=== PATIENT | female | born 2000 | race Caucasian/White ===

== ENCOUNTER 2025-08-14 07:46 | Inpatient (IN) ==
[2025-08-14] MEDS ORDERED: ACETAMINOPHEN 500 MG TAB PO PRN (08:04)
[2025-08-14] MEDS ORDERED: LIDOCAINE 1% LOCAL 20 ML VIAL INFIL PRN (08:04)
[2025-08-14] MEDS ORDERED: CALCIUM CARBONATE 500 MG CHEWABLE TAB PO PRN ×2 (08:04→08:07)
[2025-08-14] MEDS ORDERED: ACETAMINOPHEN 325 MG TAB PO PRN (08:07)
[2025-08-14] MEDS ORDERED: ONDANSETRON INJ 2 MG/ML 2 ML VIAL IV PRN (08:07)
[2025-08-14] MEDS ORDERED: BUTORPHANOL TARTRATE 1 MG/ML VIAL IV PRN (08:07)
[2025-08-14 08:46] LABS: Hematocrit (blood only) 34.0 % (37.0-47.0); Hemoglobin 11.8 g/dl (12.0-16.0); Mean Corpuscular Hemoglobin 31.6 pg (25.0-34.0); Mean Corpuscular Volume 91.2 fL (80.0-100.0); Platelet Count 227 K/uL (130-400); RDW Standard Deviation 42.0 fL (36.4-46.3); Red Blood Count 3.73 M/uL (4.20-5.40); White Blood Count 11.27 K/ul (4.8-10.8)
[2025-08-14 09:06] LABS: Alanine Aminotransferase 23.0 U/L (7-52); Albumin Globulin Ratio 1.0 (0.9-2); Albumin Level 3.0 gm/dl (3.4-5.0); Alkaline Phosphatase 122.0 U/L (34-104); Anion Gap 7.0 (3-11); Bilirubin,Total 0.3 mg/dl (0.2-1.0); Blood Urea Nitrogen 12.0 mg/dl (6-23); Calcium 8.8 mg/dl (8.6-10.3); Carbon Dioxide 22.0 mmol/L (21-32); Chloride 108.0 mmol/L (98-107); Creatinine Clr Calc Pharmacy 195.2 ml/min; Globulin 3.1 gm/dl (2.5-4.0); Glucose 100.0 mg/dl (70-99(Fasting)); Potassium 3.9 mmol/L (3.5-5.1); Sodium 137.0 mmol/L (136-145); Total Protein 6.1 gm/dl (6.0-8.3)
[2025-08-14] MEDS: DINOPROSTONE 10 MG INSERT PV ONE (09:29)
--- NOTE | 2025-08-14 09:45 | History & Physical Report ---
Date of Service August 14, 2025 Assessment & Plan (1) Marginal insertion of umbilical cord affecting management of mother: (2) Obesity affecting in third trimester, antepartum: (3) with 39 completed weeks gestation: (4) Encounter for induction of labor: Plan: 25-year-old G1, P0 at 39 weeks and 1 day gestation presenting today for scheduled duction of labor at term for class III obesity, Vital signs stable afebrile, GBS negative, heart rate reassuring, Cervix is favorable, Patel score still less than 6, Cervidil is placed in posterior fornix for induction, discussed what to expect, All questions were answered, Continue to monitor closely. Admission and Anticipated Discharge Date Admission Date: August 14, 2025 History of Present Illness Primary Care Provider: NO PCP patient is a eighteen 25-year-old G1, P0 at 39 weeks and 1 day gestation who was scheduled for induction of labor for class III obesity. She has no complaints. She denies contractions, leakage of fluid, vaginal bleeding, she denies headaches, change in her vision, nausea vomiting or abdominal pain. She reports good movements. Her has been complicated by, 1. Class III obesity, Growth scans have been within normal limits 2. marginal cord insertion patient denies medical problems, GBS negative. Allergies Allergy/AdvReac Type Severity Reaction Status Date / Time No Known Allergies Allergy Unverified 08/14/25 08:01 Home Medications Medication Instructions Recorded Confirmed Type prenat.vits,leah,[id number]-[id number]-[id number] tab 07/20/25 History Patient History Medical History No known health problems Surgical History No history of previous surgery Social History Smoking Status: Current some day smoker Tobacco Type: E-cigarettes / Vaping Second Hand Exposure: No; Do You Dip or Chew Tobacco: No; Tobacco Cessation Education Requested by Patient: No Hx Alcohol Use: No Hx Substance Use: No Preferred Language: Andorran Communication Ability: Effective Warp Tying Machine Knotter Required: No Beliefs That Will Affect Care: None marital status: Single Current Living Situation: Significant Other current occupational status: employed current occupation: [employer] Other Information That Helps Us Care for You: No Feels Safe at Home: Yes Safety Concerns: Feels Safe At This Time Assistive Devices: None QUALITY ASSOCIATE History No history of STDs, no history of chlamydia, gonorrhea, herpes Review of Systems as per Subjective / HPI Physical Exam Constitutional: WD/WN, vitals as above well developed, well nourished, + obese and comfortable Genitourinary: normal external appearance OB Exam Abdomen: + vertex Manual OB Exam: + cervical dilation 1 cm (1-2), + cervical effacement 40% and + station high OB Exam Monitor Tracing: + external uterine monitor used and + category I Results & Data Vital Signs (Past 12 Hours) Vital Signs Temp Pulse Resp BP 08/14/25 08:01 36.8 C 94 H 20 135/72 Laboratory Results Lab Results 08/14/25 Range/Units 08:28 WBC 11.27 H (4.8-10.8) K/ul RBC 3.73 L (4.20-5.40) M/uL Hgb 11.8 L (12.0-16.0) g/dl Hct 34.0 L (37.0-47.0) % MCV 91.2 (80.0-100.0) fL MCH 31.6 (25.0-34.0) pg MCHC 34.7 (32.0-36.0) g/dL RDW Std Deviation 42.0 (36.4-46.3) fL RDW Coeff of Melany 12.8 (11.5-14.5) % Plt Count 227 (130-400) K/uL MPV 10.0 (9.4-12.4) fL Sodium 137 (136-145) mmol/L Potassium 3.9 (3.5-5.1) mmol/L Chloride 108 H (98-107) mmol/L Carbon Dioxide 22 (21-32) mmol/L Anion Gap 7 (3-11) BUN 12 (6-23) mg/dl Creatinine 0.67 (0.6-1.2) mg/dl Est Cr Clr Drug Dosing 195.2 ml/min eGFR 125.87 BUN/Creatinine Ratio 17.9 (10-20) Glucose 100 H (70-99(Fasting)) mg/dl Calcium 8.8 (8.6-10.3) mg/dl Total Bilirubin 0.3 (0.2-1.0) mg/dl AST 17 (13-39) U/L ALT 23 (7-52) U/L Alkaline Phosphatase 122 H (34-104) U/L Total Protein 6.1 (6.0-8.3) gm/dl Albumin 3.0 L (3.4-5.0) gm/dl Globulin 3.1 (2.5-4.0) gm/dl Albumin/Globulin Ratio 1.0 (0.9-2) Treponema pallidum Ab Negative (Negative) Blood Type O Positive Antibody Screen NEGATIVE (2) Obesity affecting in third trimester, antepartum Obesity type affecting : other obesity Qualified Code(s): O99.213 - Obesity complicating , third trimester; E66.89 - Other obesity not elsewhere classified
--- NOTE | 2025-08-14 15:10 | Obstetrical Progress Note ---
Date of Service August 14, 2025 Assessment & Plan Admission and Anticipated Discharge Date Admission Date: August 14, 2025 Subjective Went into her room to see her, she is sleeping/ snoring comfortable Her nurse stated she has not been feeling pain or contractions FHR has been categ I Continue to monitor closely Results & Data Vital Signs (Past 12 Hours) Vital Signs Temp Pulse Resp BP 08/14/25 11:33 37.1 C 88 18 135/82 08/14/25 08:01 36.8 C 94 H 20 135/72
--- NOTE | 2025-08-14 21:34 | Obstetrical Progress Note ---
Date of Service August 14, 2025 Assessment & Plan Admission and Anticipated Discharge Date Admission Date: August 14, 2025 Subjective Patient is reevaluated. She has been resting on her side. She feels crampy all the time pain level is 5 out of 10 does not need pain medication. She denies leakage of fluid or vaginal bleeding. She reports good movements. heart rate had been category 1, [place] does not register contractions now but she was having contractions every 2 to 3 minutes earlier, Cervidil is removed, cervix is 3 cm dilated, 70% effaced, head is -3 station, bag is tighter, Discussed the findings and continue induction with oxytocin per protocol as needed to augment contractions Continue to monitor closely Results & Data Vital Signs (Past 12 Hours) Vital Signs Temp Pulse Resp BP 08/14/25 19:00 36.8 C 18 08/14/25 19:00 18 08/14/25 19:00 36.8 C 18 08/14/25 18:58 88 134/84 08/14/25 15:35 80 154/83 H 08/14/25 15:34 36.8 C 96 H 20 177/96 H 08/14/25 11:33 37.1 C 88 18 135/82
[2025-08-15] MEDS: LACTATED RINGER'S 1,000 ML IV PRN (00:28)
[2025-08-15] MEDS ORDERED: NALOXONE HCL 0.4 MG/1 ML VIAL/CARP IV PRN (00:57)
[2025-08-15] MEDS ORDERED: SODIUM CHLORIDE 0.9% PF INJ 10 ML VIAL EPI PRN (00:57)
[2025-08-15] MEDS ORDERED: LIDOCAINE 2% MPF LOCAL 5 ML VIAL EPI PRN (00:57)
[2025-08-15] MEDS ORDERED: ONDANSETRON INJ 2 MG/ML 2 ML VIAL IV PRN (00:57)
[2025-08-15] MEDS ORDERED: BUPIVACAINE 0.25% PF 30 ML VIAL EPI PRN (00:57)
[2025-08-15] MEDS ORDERED: diphenhydrAMINE 50 MG/ML VIAL IV PRN (00:57)
[2025-08-15] MEDS ORDERED: PROMETHAZINE 6.25 MG/50.25 ML BAG IV PRN (00:57)
[2025-08-15] MEDS ORDERED: ROPIVACAINE 0.5% PF 5 MG/ML 20 ML VIAL EPI PRN (00:57)
[2025-08-15] MEDS ORDERED: NALBUPHINE HCL INJ 10 MG/ML AMP IV PRN (00:57)
[2025-08-15] MEDS ORDERED: NALOXONE HCL 1 MG in SODIUM CHLORIDE 0.9% 1,000 ML IV PRN (00:57)
--- NOTE | 2025-08-15 00:57 | Anesthesiology Consultation ---
Date of Service August 15, 2025 Assessment & Plan ASA ASA2 Proposed Anesthesia Anesthesia Type: Labor Epidural Risk / Benefits Reviewed With: PT / POA / Parent / Guardian, Accepts Plan and Informed Consent Obtained History Height/Weight Height: 5 ft 9 in Weight: 137.438 kg Allergies Allergy/AdvReac Type Severity Reaction Status Date / Time No Known Allergies Allergy Unverified 08/14/25 08:01 Medications Home Medications Medication Instructions Recorded Confirmed Last Taken prenat.vits,leah,[id number]-[id number]-[id number] tab 07/20/25 08/12/25 08:00 Active Medications Generic Name Dose Route Start Last Admin Trade Name Freq PRN Reason Stop Dose Admin Lactated Ringer's 1,000 mls @ 150 mls/hr 08/14/25 08:04 08/15/25 01:27 Lr IV 08/16/25 08:03 999 mls/hr .[id number] PRN Administration L&D Protocol Protocol Past Medical History Medical History No known health problems Exercise / Class Metabolic Activity II 4-5 Yardwork/Stairs/Walk up hill Past Surgical History Surgical History No history of previous surgery Past Anesthesia History No Hx of Anesthesia Complications and No Family Hx of Anesthesia Complications History of PONV No Hx of PONV and No Hx of Motion Sickness Social History Smoking Status: Current some day smoker Do You Dip or Chew Tobacco: No Hx Alcohol Use: No Hx Substance Use: No Review of Systems denies fever/cough/ colds/ chest pain/ SOB/ JUDY denies JUDY Physical Exam Vital Signs Last Vital Signs Temp 36.5 C 08/15/25 00:30 Pulse 90 08/15/25 01:29 Resp 20 08/15/25 00:30 BP 126/67 08/15/25 01:29 Pulse Ox 99 08/15/25 01:25 ENMT Mouth: no TMJ abnormality and no dentition abnormality Thyromental Distance: > or= 3.5 Finger Breadths Mallampati Class: II Neck neck extension not limited Respiratory normal respiratory effort; no respiratory distress Auscultation: lungs clear to auscultation bilaterally Cardiovascular Rate/Rhythm: regular rate and regular rhythm Neurologic moves all extremities Psychiatric Orientation: alert and oriented x 3 Testing Laboratory Results 08/14/25 08:28 08/14/25 08:28 Blood Type O Positive 08/14/25 08:28 Antibody Screen NEGATIVE 08/14/25 08:28
[2025-08-15] MEDS: BUPIVACAINE 0.25% PF 30 ML VIAL ONE (01:26)
[2025-08-15] MEDS: LIDOCAINE 2%/EPINEPHRINE 1:200,000 20 ML PF ONE (01:26)
[2025-08-15] MEDS: fentANYL 2 MCG/ML BUPIVacaine 0.125%-NSS 100ML BAG ONE (01:28)
[2025-08-15] MEDS: SODIUM CHLORIDE 0.9% PF INJ 10 ML VIAL ONE (01:39)
[2025-08-15] MEDS: LIDOCAINE 2%/EPINEPHRINE 1:200,000 20 ML PF EPI STA (02:15)
[2025-08-15] MEDS: SODIUM CHLORIDE 0.9% PF INJ 10 ML VIAL EPI STA (02:15)
[2025-08-15] MEDS: BUPIVACAINE 0.25% PF 30 ML VIAL EPI STA (02:15)
[2025-08-15] MEDS: OXYTOCIN 30 UNITS/NSS 30 UNITS/500 ML BAG IV PRN ×2 (07:40→11:22)
[2025-08-15] MEDS: fentANYL 2 MCG/ML BUPIVacaine 0.125%-NSS 100ML BAG EPI PRN (08:43)
--- NOTE | 2025-08-15 08:51 | Obstetrical Progress Note ---
Date of Service August 15, 2025 Assessment & Plan Admission and Anticipated Discharge Date Admission Date: August 14, 2025 Subjective Patient is reevaluated. SROM'ed at 00:15 and got more painful, received epidural and comfortable Has not required oxytocin and progressed normally FHR categ I VE: thick anterior lip, no cervix all around head, 9/ 80%, +1 Oxytocin has started at 8 am Continue to monitor closely Results & Data Vital Signs (Past 12 Hours) Vital Signs Temp Pulse Resp BP Pulse Ox Pulse Ox O2 Del Method 08/15/25 08:46 102 H 99 08/15/25 08:41 103 H 100 08/15/25 08:36 104 H 100 08/15/25 08:31 111 H 98 08/15/25 08:26 113 H 98 08/15/25 08:21 100 H 98 08/15/25 08:16 100 H 99 08/15/25 08:11 109 H 100 08/15/25 08:06 106 H 99 08/15/25 08:01 99 08/15/25 08:01 106 H 08/15/25 08:01 112 H 115/75 08/15/25 07:56 107 H 99 08/15/25 07:51 90 99 08/15/25 07:47 93 H 126/77 08/15/25 07:46 90 99 08/15/25 07:40 107 H 100 08/15/25 07:35 101 H 100 08/15/25 07:31 118 H 147/76 H 08/15/25 07:30 102 H 100 08/15/25 07:25 127 H 96 08/15/25 07:24 123 H 91 08/15/25 07:20 83 98 08/15/25 07:16 86 134/82 08/15/25 07:15 86 99 08/15/25 07:12 Room Air 08/15/25 07:12 100 08/15/25 07:10 36.9 C 91 H 18 100 08/15/25 07:05 101 H 100 08/15/25 07:01 103 H 131/75 08/15/25 07:00 97 H 100 08/15/25 06:55 95 H 100 08/15/25 06:50 99 H 99 08/15/25 06:45 90 128/73 98 08/15/25 06:40 81 98 08/15/25 06:35 82 99 08/15/25 06:31 89 127/72 08/15/25 06:30 99 H 100 08/15/25 06:25 99 H 96 08/15/25 06:20 106 H 100 08/15/25 06:16 105 H 126/60 08/15/25 06:15 106 H 99 08/15/25 06:10 113 H 100 08/15/25 06:05 114 H 97 08/15/25 06:00 36.8 C 100 H 18 130/81 97 08/15/25 05:55 108 H 96 08/15/25 05:50 97 H 97 08/15/25 05:47 100 H 134/77 08/15/25 05:45 103 H 97 08/15/25 05:40 100 H 97 08/15/25 05:35 89 97 08/15/25 05:31 83 128/65 08/15/25 05:30 89 20 96 08/15/25 05:25 88 96 08/15/25 05:20 85 97 08/15/25 05:16 90 159/92 H 08/15/25 05:15 96 H 97 08/15/25 05:10 110 H 98 08/15/25 05:05 91 H 98 08/15/25 05:00 121 H 18 98 08/15/25 04:55 113 H 99 08/15/25 04:50 89 95 08/15/25 04:46 76 127/60 08/15/25 04:45 82 96 08/15/25 04:40 80 97 08/15/25 04:35 90 99 08/15/25 04:31 93 H 128/61 08/15/25 04:30 90 18 98 08/15/25 04:25 81 97 08/15/25 04:20 90 99 08/15/25 04:16 80 121/67 08/15/25 04:15 82 98 08/15/25 04:10 89 99 08/15/25 04:05 92 H 99 08/15/25 04:01 86 109/59 L 08/15/25 04:00 88 16 99 08/15/25 03:55 92 H 100 08/15/25 03:50 36.8 C 100 H 99 08/15/25 03:45 90 99 08/15/25 03:40 81 97 08/15/25 03:35 85 97 08/15/25 03:31 74 121/69 08/15/25 03:30 85 18 93 08/15/25 03:28 70 94 08/15/25 03:25 75 91 08/15/25 03:20 74 92 08/15/25 03:15 92 08/15/25 03:15 75 08/15/25 03:15 75 121/66 08/15/25 03:10 71 93 08/15/25 03:08 73 94 08/15/25 03:05 76 92 08/15/25 03:01 68 08/15/25 03:01 74 122/67 94 08/15/25 03:00 73 18 95 08/15/25 02:55 68 95 08/15/25 02:54 72 94 08/15/25 02:50 93 H 96 08/15/25 02:47 75 94 08/15/25 02:45 70 107/57 L 96 08/15/25 02:40 71 96 08/15/25 02:35 79 98 08/15/25 02:30 72 110/55 L 97 08/15/25 02:25 80 98 08/15/25 02:20 72 98 08/15/25 02:15 72 119/64 99 08/15/25 02:10 83 99 08/15/25 02:05 81 99 08/15/25 02:01 85 119/62 08/15/25 02:00 87 18 98 08/15/25 01:55 80 98 08/15/25 01:50 92 H 98 08/15/25 01:46 76 117/58 L 08/15/25 01:45 74 97 08/15/25 01:40 80 97 08/15/25 01:35 78 98 08/15/25 01:30 83 99 08/15/25 01:29 90 126/67 08/15/25 01:26 88 128/66 08/15/25 01:25 86 99 08/15/25 01:23 88 132/81 08/15/25 01:20 99 08/15/25 01:20 96 H 08/15/25 01:20 85 159/77 H 08/15/25 01:15 89 98 08/15/25 01:10 94 H 99 08/15/25 01:08 94 H 171/86 H 08/15/25 01:05 100 H 100 08/15/25 01:00 85 100 08/15/25 00:55 101 H 100 08/15/25 00:50 110 H 99 08/15/25 00:45 86 99 08/15/25 00:40 87 99 08/15/25 00:35 100 H 100 08/15/25 00:30 36.5 C 84 20 99 08/14/25 23:00 36.9 C 76 16 139/78 O2 Del Method 08/15/25 08:46 08/15/25 08:41 08/15/25 08:36 08/15/25 08:31 08/15/25 08:26 08/15/25 08:21 08/15/25 08:16 08/15/25 08:11 08/15/25 08:06 08/15/25 08:01 08/15/25 08:01 08/15/25 08:01 08/15/25 07:56 08/15/25 07:51 08/15/25 07:47 08/15/25 07:46 08/15/25 07:40 08/15/25 07:35 08/15/25 07:31 08/15/25 07:30 08/15/25 07:25 08/15/25 07:24 08/15/25 07:20 08/15/25 07:16 08/15/25 07:15 08/15/25 07:12 08/15/25 07:12 Room Air 08/15/25 07:10 08/15/25 07:05 08/15/25 07:01 08/15/25 07:00 08/15/25 06:55 08/15/25 06:50 08/15/25 06:45 08/15/25 06:40 08/15/25 06:35 08/15/25 06:31 08/15/25 06:30 08/15/25 06:25 08/15/25 06:20 08/15/25 06:16 08/15/25 06:15 08/15/25 06:10 08/15/25 06:05 08/15/25 06:00 08/15/25 05:55 08/15/25 05:50 08/15/25 05:47 08/15/25 05:45 08/15/25 05:40 08/15/25 05:35 08/15/25 05:31 08/15/25 05:30 08/15/25 05:25 08/15/25 05:20 08/15/25 05:16 08/15/25 05:15 08/15/25 05:10 08/15/25 05:05 08/15/25 05:00 08/15/25 04:55 08/15/25 04:50 08/15/25 04:46 08/15/25 04:45 08/15/25 04:40 08/15/25 04:35 08/15/25 04:31 08/15/25 04:30 08/15/25 04:25 08/15/25 04:20 08/15/25 04:16 08/15/25 04:15 08/15/25 04:10 08/15/25 04:05 08/15/25 04:01 08/15/25 04:00 08/15/25 03:55 08/15/25 03:50 08/15/25 03:45 08/15/25 03:40 08/15/25 03:35 08/15/25 03:31 08/15/25 03:30 08/15/25 03:28 08/15/25 03:25 08/15/25 03:20 08/15/25 03:15 08/15/25 03:15 08/15/25 03:15 08/15/25 03:10 08/15/25 03:08 08/15/25 03:05 08/15/25 03:01 08/15/25 03:01 08/15/25 03:00 08/15/25 02:55 08/15/25 02:54 08/15/25 02:50 08/15/25 02:47 08/15/25 02:45 08/15/25 02:40 08/15/25 02:35 08/15/25 02:30 08/15/25 02:25 08/15/25 02:20 08/15/25 02:15 08/15/25 02:10 08/15/25 02:05 08/15/25 02:01 08/15/25 02:00 08/15/25 01:55 08/15/25 01:50 08/15/25 01:46 08/15/25 01:45 08/15/25 01:40 08/15/25 01:35 08/15/25 01:30 08/15/25 01:29 08/15/25 01:26 08/15/25 01:25 08/15/25 01:23 08/15/25 01:20 08/15/25 01:20 08/15/25 01:20 08/15/25 01:15 08/15/25 01:10 08/15/25 01:08 08/15/25 01:05 08/15/25 01:00 08/15/25 00:55 08/15/25 00:50 08/15/25 00:45 08/15/25 00:40 08/15/25 00:35 08/15/25 00:30 08/14/25 23:00
[2025-08-15] MEDS ORDERED: HYDROCORTISONE ACETATE 25 MG SUPP PR PRN (11:10)
[2025-08-15] MEDS ORDERED: OXYTOCIN 30 UNITS/NSS 30 UNITS/500 ML BAG IV PRN (11:10)
--- NOTE | 2025-08-15 11:13 | Delivery Summary ---
Vaginal Delivery Summary Date of Service August 15, 2025 Vaginal Delivery Summary Patient was found to be fully dilated and desired to push. She pushed for about 40 min and delivered the head and then shoulders with minimal traction. The baby was handed off to the mother. The cord was clampedx2 and cut at 1 minute. The placenta was delivered spontaneously as intact and complete. The uterus was explored and found to be empty, Lower segment was cleared of all clots. The fundus was firm. IV oxytocin was started and rectal Cytotec tbs were placed. 1 dose of IM Methergine was also given. The vagina and perineum were checked and found to have 2nd degree left vaginal wall laceration and 1st degree right labial laceration extending into lower vagina. . The vaginal mucosa was repaired with 2/0 vicryl and skin on subcuticular fashion. right labial laceration was close to the urethra, Rush catheter was inserted and then it was repaired with 2-0 Vicryl in a continuous fashion, extending into the lower vagina. Despite multiple sutures it was still oozing. it was covered with hemostatic powder,, bleeding is stopped and it was covered with 2 sponges to apply pressure. QBL was 807 ml. The fundus was firm. The baby was a viable female infant, Apgars 8/9, the weight is pending The mother and the baby tolerated the procedure well. No complications happened and I was present during whole procedure.
[2025-08-15] MEDS: METHYLERGONOVINE MALEATE 0.2 MG/ML AMP IM ONE (11:21)
[2025-08-15] MEDS: METHYLERGONOVINE MALEATE 0.2 MG/ML AMP ONE (11:25)
[2025-08-15] MEDS ORDERED: SODIUM CHLORIDE 0.9% 100 ML IV PRN (11:32)
[2025-08-15] MEDS: TRANEXAMIC ACID / 0.7% NACL 1000MG/100ML BAG IV ONE (11:48)
[2025-08-15] MEDS: BENZOCAINE 20% SPRY 85 APPLN/85 GM CAN EXT PRN (11:49)
[2025-08-15] MEDS: DIPHTHER/TETAN/PERTUS Vaccine (Tdap, Adol/Adult) 0.5mL IM ONE (12:02)
[2025-08-15] MEDS: MEASLES, MUMPS & RUBELLA VIRUS VACCINE (MMR) 0.5ML VIAL SQ ONE (12:02)
--- NOTE | 2025-08-15 12:46 | Anesthesia Procedure Note ---
Date of Service August 15, 2025 Anesthesia Post Epidural Note Vital Signs Vital Signs: Temp Pulse Resp BP Pulse Ox O2 Del Method 37.1 C 113 H 20 137/79 93 Room Air 08/15/25 09:00 08/15/25 12:33 08/15/25 10:00 08/15/25 12:33 08/15/25 10:21 08/15/25 07:12 Pain Intensity Lower Back: Pain Intensity: 0 Notes Mental Status: alert / awake / arousable and participated in evaluation Patient Amnestic to Procedure: No Nausea / Vomiting: adequately controlled Pain: adequately controlled Airway Patency, RR, SpO2: stable & adequate BP & HR: stable & adequate Hydration State: stable & adequate Neuraxial Anesthesia: was administered and sensory block is resolving Anesthetic Complications: no major complications apparent and Pt Satisfied with anesthetic care Epidural: Removed without complications and With tip intact
--- NOTE | 2025-08-15 18:39 | Obstetrical Progress Note ---
Date of Service August 15, 2025 Assessment & Plan Admission and Anticipated Discharge Date Admission Date: August 14, 2025 Subjective 2 sponges in vagina were removed by myself Rush was taken out by her nurse Patient feels well, breast feeding currently Continue to monitor Results & Data Vital Signs (Past 12 Hours) Vital Signs Temp Pulse Pulse Resp BP BP Pulse Ox 08/15/25 15:42 36.6 C 72 17 136/76 98 08/15/25 13:26 36.8 C 21 125/84 95 08/15/25 13:02 122 H 144/77 H 08/15/25 12:48 103 H 139/75 08/15/25 12:33 113 H 137/79 08/15/25 12:17 105 H 136/79 08/15/25 11:00 117 H 153/67 H 08/15/25 10:21 93 08/15/25 10:21 150 H 08/15/25 10:21 127 H 92 08/15/25 10:16 115 H 99 08/15/25 10:11 114 H 80 L 08/15/25 10:06 104 H 99 08/15/25 10:04 117 H 94 08/15/25 10:01 113 H 96 08/15/25 10:00 20 08/15/25 10:00 20 08/15/25 09:58 111 H 87 L 08/15/25 09:56 114 H 78 L 08/15/25 09:52 118 H 85 L 08/15/25 09:51 112 H 100 08/15/25 09:46 119 H 100 08/15/25 09:44 108 H 87 L 08/15/25 09:41 98 H 99 08/15/25 09:36 100 H 100 08/15/25 09:31 107 H 100 08/15/25 09:30 111 H 86 L 08/15/25 09:26 82 99 08/15/25 09:21 85 99 08/15/25 09:16 89 100 08/15/25 09:11 100 H 100 08/15/25 09:09 116 H 92 08/15/25 09:06 99 H 100 08/15/25 09:01 92 H 100 08/15/25 09:00 18 08/15/25 09:00 37.1 C 18 08/15/25 08:56 117 H 100 08/15/25 08:51 99 H 99 08/15/25 08:46 102 H 99 08/15/25 08:41 103 H 100 08/15/25 08:36 104 H 100 08/15/25 08:31 111 H 98 08/15/25 08:26 113 H 98 08/15/25 08:21 100 H 98 08/15/25 08:16 100 H 99 08/15/25 08:11 109 H 100 08/15/25 08:06 106 H 99 08/15/25 08:01 99 08/15/25 08:01 106 H 08/15/25 08:01 112 H 115/75 08/15/25 08:00 18 08/15/25 08:00 18 08/15/25 07:56 107 H 99 08/15/25 07:51 90 99 08/15/25 07:47 93 H 126/77 08/15/25 07:46 90 99 08/15/25 07:40 107 H 100 08/15/25 07:35 101 H 100 08/15/25 07:31 118 H 147/76 H 08/15/25 07:30 102 H 100 08/15/25 07:25 127 H 96 08/15/25 07:24 123 H 91 08/15/25 07:20 83 98 08/15/25 07:16 86 134/82 08/15/25 07:15 86 99 08/15/25 07:12 08/15/25 07:12 08/15/25 07:10 36.9 C 91 H 18 100 08/15/25 07:05 101 H 100 08/15/25 07:01 103 H 131/75 08/15/25 07:00 97 H 100 08/15/25 06:55 95 H 100 08/15/25 06:50 99 H 99 08/15/25 06:45 90 128/73 98 08/15/25 06:40 81 98 Pulse Ox O2 Del Method O2 Del Method 08/15/25 15:42 Room Air 08/15/25 13:26 Room Air 08/15/25 13:02 08/15/25 12:48 08/15/25 12:33 08/15/25 12:17 08/15/25 11:00 08/15/25 10:21 08/15/25 10:21 08/15/25 10:21 08/15/25 10:16 08/15/25 10:11 08/15/25 10:06 08/15/25 10:04 08/15/25 10:01 08/15/25 10:00 08/15/25 10:00 08/15/25 09:58 08/15/25 09:56 08/15/25 09:52 08/15/25 09:51 08/15/25 09:46 08/15/25 09:44 08/15/25 09:41 08/15/25 09:36 08/15/25 09:31 08/15/25 09:30 08/15/25 09:26 08/15/25 09:21 08/15/25 09:16 08/15/25 09:11 08/15/25 09:09 08/15/25 09:06 08/15/25 09:01 08/15/25 09:00 08/15/25 09:00 08/15/25 08:56 08/15/25 08:51 08/15/25 08:46 08/15/25 08:41 08/15/25 08:36 08/15/25 08:31 08/15/25 08:26 08/15/25 08:21 08/15/25 08:16 08/15/25 08:11 08/15/25 08:06 08/15/25 08:01 08/15/25 08:01 08/15/25 08:01 08/15/25 08:00 08/15/25 08:00 08/15/25 07:56 08/15/25 07:51 08/15/25 07:47 08/15/25 07:46 08/15/25 07:40 08/15/25 07:35 08/15/25 07:31 08/15/25 07:30 08/15/25 07:25 08/15/25 07:24 08/15/25 07:20 08/15/25 07:16 08/15/25 07:15 08/15/25 07:12 Room Air 08/15/25 07:12 100 Room Air 08/15/25 07:10 08/15/25 07:05 08/15/25 07:01 08/15/25 07:00 08/15/25 06:55 08/15/25 06:50 08/15/25 06:45 08/15/25 06:40
[2025-08-15] MEDS: DOCUSATE SODIUM 100 MG CAP PO SCH (20:53)
[2025-08-15] MEDS: IBUPROFEN 600 MG TAB PO PRN (20:53)
[2025-08-16 06:36] LABS: Hematocrit (blood only) 28.2 % (37.0-47.0); Hemoglobin 10.0 g/dl (12.0-16.0); Mean Corpuscular Hemoglobin 32.3 pg (25.0-34.0); Mean Corpuscular Volume 91.0 fL (80.0-100.0); Platelet Count 210 K/uL (130-400); RDW Standard Deviation 42.8 fL (36.4-46.3); Red Blood Count 3.10 M/uL (4.20-5.40); White Blood Count 20.72 K/ul (4.8-10.8)
[2025-08-16] MEDS: FERROUS SULFATE 325 MG TAB PO SCH (08:04)
[2025-08-16] MEDS: PRENATAL VITAMIN 1 TAB PO SCH (08:04)
[2025-08-16] MEDS: ACETAMINOPHEN 325 MG TAB PO PRN (08:05)
--- NOTE | 2025-08-16 15:02 | Obstetrical Progress Note ---
Date of Service August 16, 2025 Assessment & Plan Admission and Anticipated Discharge Date Admission Date: August 14, 2025 Subjective abdomen soft and non tender no calf tenderness ambulating well vaginal bleeding scant hgb 10.0 Results & Data Vital Signs (Past 12 Hours) Vital Signs Temp Pulse Resp BP Pulse Ox O2 Del Method 08/16/25 08:30 36.5 C 88 18 123/80 99 Room Air 08/16/25 04:30 36.4 C L 96 H 16 117/74 99 Room Air
[2025-08-17 02:16] VITALS: RESP 18; O2SAT 98
[2025-08-17 07:03] LABS: Hematocrit (blood only) 26.3 % (37.0-47.0); Hemoglobin 9.2 g/dl (12.0-16.0); Immature Granulocytes # (auto) 0.10 K/uL (0.01-0.20); Immature Granulocytes % (auto) 0.7 %; Mean Corpuscular Hemoglobin 32.5 pg (25.0-34.0); Mean Corpuscular Volume 92.9 fL (80.0-100.0); Platelet Count 222 K/uL (130-400); RDW Standard Deviation 44.7 fL (36.4-46.3); Red Blood Count 2.83 M/uL (4.20-5.40); White Blood Count 13.68 K/ul (4.8-10.8)
--- NOTE | 2025-08-17 08:39 | Obstetrical Progress Note ---
Date of Service August 17, 2025 Assessment & Plan Admission and Anticipated Discharge Date Admission Date: August 14, 2025 Subjective Patient is seen and examined. She feels well, no complaints. Ambulating without dizziness Voiding without difficulty Tolerating regular diet with out N&V Bleeding is minimal No fever/ chills/ CP/ SOB/ N&V/ Leg pain Breast and bottle feeding without problems Vital Signs Temp Pulse Resp BP Pulse Ox O2 Del Method 08/17/25 00:00 36.4 C L 95 H 18 136/82 98 Room Air Lab Results 08/14/25 08/16/25 08/17/25 Range/Units 08:28 05:54 06:09 WBC 11.27 H 20.72 H 13.68 H (4.8-10.8) K/ul RBC 3.73 L 3.10 L 2.83 L (4.20-5.40) M/uL Hgb 11.8 L 10.0 L 9.2 L (12.0-16.0) g/dl Hct 34.0 L 28.2 L 26.3 L (37.0-47.0) % MCV 91.2 91.0 92.9 (80.0-100.0) fL MCH 31.6 32.3 32.5 (25.0-34.0) pg MCHC 34.7 35.5 35.0 (32.0-36.0) g/dL RDW Std Deviation 42.0 42.8 44.7 (36.4-46.3) fL RDW Coeff of Melany 12.8 13.0 13.2 (11.5-14.5) % Plt Count 227 210 222 (130-400) K/uL MPV 10.0 10.1 10.2 (9.4-12.4) fL Immature Gran % (Auto) 0.7 % Neut % (Auto) 63.4 % Lymph % (Auto) 23.2 % Ralls % (Auto) 8.7 % Eos % (Auto) 3.5 % Baso % (Auto) 0.5 % Neut # (Auto) 8.67 H (1.40-6.50) K/uL Lymph # (Auto) 3.17 (1.20-3.40) K/uL Ralls # (Auto) 1.19 H (0.11-0.59) K/uL Eos # (Auto) 0.48 (0.00-0.50) K/uL Baso # (Auto) 0.07 (0.00-0.20) K/uL Immature Gran # (Auto) 0.10 (0.01-0.20) K/uL Sodium 137 (136-145) mmol/L Potassium 3.9 (3.5-5.1) mmol/L Chloride 108 H (98-107) mmol/L Carbon Dioxide 22 (21-32) mmol/L Anion Gap 7 (3-11) BUN 12 (6-23) mg/dl Creatinine 0.67 (0.6-1.2) mg/dl Est Cr Clr Drug Dosing 195.2 ml/min eGFR 125.87 BUN/Creatinine Ratio 17.9 (10-20) Glucose 100 H (70-99(Fasting)) mg/dl Calcium 8.8 (8.6-10.3) mg/dl Total Bilirubin 0.3 (0.2-1.0) mg/dl AST 17 (13-39) U/L ALT 23 (7-52) U/L Alkaline Phosphatase 122 H (34-104) U/L Total Protein 6.1 (6.0-8.3) gm/dl Albumin 3.0 L (3.4-5.0) gm/dl Globulin 3.1 (2.5-4.0) gm/dl Albumin/Globulin Ratio 1.0 (0.9-2) Treponema pallidum Ab Negative (Negative) Blood Type O Positive Antibody Screen NEGATIVE Crossmatch See Detail PE: General: Alert, orientedx3, NAD Abd: soft, NT, fundus firm, below Umbilicus Perineum intact, Lochia rubra minimal Ext; NT, no edema AP: 25 yo s/p , ppd# 2 VSS Afebrile doing well Continue routine care All questions were answered D/C home , f/u in office Results & Data Vital Signs (Past 12 Hours) Vital Signs Temp Pulse Resp BP Pulse Ox O2 Del Method 08/17/25 00:00 36.4 C L 95 H 18 136/82 98 Room Air
[2025-08-17 09:36] VITALS: BP 134/82; TEMP 98.2
[2025-08-17] MEDS: AMOXICILLIN/CLAVULANATE 875 MG TAB PO SCH (09:41)
[2025-08-17] MEDS: INFLUENZA VACC TS2025-26(6m+)/PF (IIV3) 0.5mL Syr IM ONE (09:42)
[2025-08-17 11:35] VITALS: PULSE 95
== END 2025-08-17 14:40 | disposition home or self-care (01) | DRG 807 ==
LOC: 4S1 07:46 → 4E2 08-15 13:27